=== PATIENT | female | born 1945 | race Hispanic/Latino ===

== ENCOUNTER → 2020-11-29 | Outpatient (CLI) | payer OTHER | END | disposition home or self-care (01) | LOC: RAH 12:57 | PROVIDERS: ATTEND Otolaryngology Plastic Surgery within the Head & Neck | DX: R22.1 Localized swelling, mass and lump, neck (principal); R22.0 Localized swelling, mass and lump, head | CPT/HCPCS: 76536 ==

== ENCOUNTER → 2022-01-28 | Outpatient (CLI) | payer OTHER | END | disposition home or self-care (01) | LOC: RAH 09:11 | PROVIDERS: ATTEND Family Medicine | DX: N17.9 Acute kidney failure, unspecified (principal) | CPT/HCPCS: 93975 ==

== ENCOUNTER 2022-04-25 05:39 | Observation (INO) | payer OTHER ==
[2022-04-23 11:37] LABS: BASOPHILS % (AUTO) 0.7 % (0.0-5.0); EOSINOPHILS % (AUTO) 2.6 % (0.0-8.0); HEMATOCRIT 28.5 % (36-48); LYMPHOCYTES % (AUTO) 26.9 % (21.0-51.0); MEAN CORPUSCULAR HEMOGLOBIN 24.5 pg (27.0-33.0); MEAN CORPUSCULAR HGB CONC 31.2 g/dL (32.0-36.0); MEAN CORPUSCULAR VOLUME 78.5 fL (79-99); MONOCYTES % (AUTO) 8.5 % (3.0-13.0); NEUTROPHILS % (AUTO) 61.1 % (40.0-77.0); PLATELET COUNT (AUTO) 366 K/uL (130-400); RED BLOOD CELL COUNT(AUTO) 3.63 MIL/uL (4.00-5.50); RED CELL DISTRIBUTION WIDTH 13.9 % (11.0-15.5); WHITE BLOOD COUNT (AUTO) 8.7 K/uL (4.8-10.8)
[2022-04-23 11:55] LABS: INR 0.93 (0.85-1.15); PROTHROMBIN TIME 9.9 SEC (9.6-11.6)
[2022-04-23 11:56] LABS: PARTIAL THROMBOPLASTIN TIME 26.2 SEC (26.3-35.5)
[2022-04-23 12:09] LABS: B-TYPE NATRIURETIC PEPTIDE 154 pg/mL (0-100)
[2022-04-23 12:14] LABS: APPEARANCE,URINE CLEAR (CLEAR); BILIRUBIN,URINE NEGATIVE (NEGATIVE); COLOR,URINE YELLOW (YELLOW); GLUCOSE, URINE (UA) >=1000 mg/dL (NEGATIVE); KETONES,URINE NEGATIVE (NEGATIVE); LEUKOCYTE ESTERASE ,URINE MODERATE (NEGATIVE); NITRATE,URINE NEGATIVE (NEGATIVE); OCCULT BLOOD,URINE TRACE-INTACT (NEGATIVE); PROTEIN,URINE NEGATIVE (NEGATIVE); UROBILINOGEN,URINE 0.2 mg/dL (0.2-1.0)
[2022-04-23 12:21] LABS: BACTERIA,URINE Few /HPF (None Seen); RBC,URINE 0-1 /HPF (0-1); SQUAMOUS EPITHELIAL CELL,UR Few /HPF (0-2); WBC,URINE 0-1 /HPF (0-1)
[2022-04-23 13:12] LABS: CREATININE 1.3 mg/dL (0.5-1.5); POTASSIUM 4.9 mmol/L (3.5-5.1)
[2022-04-24 09:15] VITALS: BP 155/78
[~2022-04-25] VITALS: Ht 154.9 cm; Wt 59.0 kg
[2022-04-25] VITALS (15 sets, daily range): BP systolic 111–135; BP diastolic 45–66
[~2022-04-25 05:39] MED LIST: AMLO-258 PO; FURO20TA4 PO; GLIM2TAB30 PO; INSU100V37 SQ; LEVO50CA4 PO; PANT40TA54 PO; SIMV-43 PO
[2022-04-25] MEDS ORDERED: 0.9%NACL 1000ML 1,000 ML IV ONE (06:22)
[2022-04-25 07:10] LABS: HEMATOCRIT 27.3 % (36-48)
[2022-04-25] MEDS ORDERED: IOHEXOL 350 MG/ML 100ML INFUS..BTL IV ONE ×2 (07:13→07:26)
[2022-04-25] MEDS ORDERED: LIDOCAINE HCL 1% 20 ML VIAL ONE ×2 (07:13→07:16)
[2022-04-25] MEDS ORDERED: HEPARIN 10,000 UNIT/10ML (1,000 UNIT/ML) VIAL ONE (07:25)
[2022-04-25] MEDS ORDERED: IOHEXOL-350 50ML VIAL IV ONE (07:26)
[2022-04-25] MEDS ORDERED: FENTANYL CITRATE PF 50 MCG/1 ML 2ML VIAL ONE (07:26)
[2022-04-25] MEDS ORDERED: MIDAZOLAM HCL 1 MG/ML 2ML VIAL ONE (07:26)
[2022-04-25] MEDS ORDERED: NITROGLYCERIN 50MG VIAL ONE (07:45)
[2022-04-25] MEDS ORDERED: BIVALIRUDIN 250 MG/VIAL IV ONE (08:08)
[2022-04-25] MEDS ORDERED: CLOPIDOGREL 300MG TAB ONE (08:30)
[2022-04-25] MEDS ORDERED: ASPIRIN 325MG EC TAB PO ONE (08:30)
[2022-04-25] MEDS ORDERED: MORPHINE 4 MG SYG ONE ×2 (08:45→09:00)
[2022-04-25] MEDS ORDERED: NITROGLYCERIN 0.4 MG SL TAB SL PRN (09:00)
[2022-04-25] MEDS: CLOPIDOGREL 75MG TAB PO SCH (09:00)
[2022-04-25] MEDS ORDERED: DEXTROSE 50%-WATER 50 ML DISP.SYRIN IV PRN ×2 (09:00→14:00)
[2022-04-25] MEDS ORDERED: GLUCAGON 1MG KIT 1 MG ML IM PRN ×2 (09:00→14:00)
[2022-04-25] MEDS ORDERED: 0.9%NACL 1000ML 1,000 ML IV SCH (09:00)
[2022-04-25] MEDS: ASPIRIN 81MG CHEW TAB PO SCH (09:00)
[2022-04-25] MEDS ORDERED: ONDANSETRON 4MG INJ ONE (10:33)
[2022-04-25] MEDS ORDERED: PANTOPRAZOLE 40 MG/VIAL IVP SCH (11:00)
[2022-04-25] MEDS ORDERED: ONDANSETRON 4MG INJ IVP SCH (11:00)
[2022-04-25] MEDS ORDERED: INSULIN HUMULIN R 100 UNIT/ML 3ML SQ SCH (11:30)
[2022-04-25] MEDS ORDERED: MAGNESIUM 2GM PREMIX 50ML 50 ML IV PRN (14:00)
[2022-04-25] MEDS ORDERED: POTASSIUM CHLORIDE 10% ELIXIR 20 MEQ/15 ML UDCUP PO PRN (14:00)
[2022-04-25] MEDS ORDERED: KCL 20 MEQ ERTAB PO PRN (14:00)
[2022-04-25] MEDS ORDERED: LIDOCAINE HCL-MPF 1% 2ML VIAL IV PRN (14:00)
[2022-04-25] MEDS ORDERED: POTASSIUM CHLORIDE 20MEQ/100ML 100 ML IV PRN (14:00)
[2022-04-25] MEDS ORDERED: CEFTRIAXONE 1G VIAL IVP SCH (14:30)
[2022-04-25] MEDS ORDERED: ALBUTEROL 0.083% 2.5 MG/3 ML INH IH PRN (14:30)
[2022-04-25] MEDS: INSULIN HUMULIN R 100 UNIT/ML 3ML SQ SCH ×2 (18:35→20:28)
[2022-04-25] MEDS ORDERED: PANTOPRAZOLE 40 MG TAB DR PO SCH (21:00)
[2022-04-25] MEDS ORDERED: FUROSEMIDE 20 MG TABLET PO ONE (21:00)
[2022-04-25] MEDS ORDERED: SIMVASTATIN 20 MG TABLET PO SCH (21:00)
[2022-04-26 04:00] VITALS: BP 117/54
[2022-04-26 05:28] LABS: HEMATOCRIT 25.6 % (36-48); MEAN CORPUSCULAR HEMOGLOBIN 24.7 pg (27.0-33.0); MEAN CORPUSCULAR HGB CONC 31.6 g/dL (32.0-36.0); RED BLOOD CELL COUNT(AUTO) 3.28 MIL/uL (4.00-5.50); RED CELL DISTRIBUTION WIDTH 14.3 % (11.0-15.5); WHITE BLOOD COUNT (AUTO) 9.6 K/uL (4.8-10.8)
[2022-04-26 05:53] LABS: CREATININE 1.1 mg/dL (0.5-1.5); POTASSIUM 4.1 mmol/L (3.5-5.1)
[2022-04-26] MEDS: INSULIN HUMULIN R 100 UNIT/ML 3ML SQ SCH ×2 (06:19→12:18)
[2022-04-26] MEDS ORDERED: LEVOTHYROXINE 50 MCG TABLET PO SCH (06:30)
[2022-04-26 08:15] VITALS: BP 137/58
[2022-04-26] MEDS: ASPIRIN 81MG CHEW TAB PO SCH (08:17)
[2022-04-26] MEDS: CLOPIDOGREL 75MG TAB PO SCH (08:18)
[2022-04-26] MEDS ORDERED: NON-FORMULARY MEDICATION 1 EACH (Levothyroxine Sodium (Levothyroxine) 50 MCG) PO SCH (09:00)
[2022-04-26] MEDS ORDERED: NON-FORMULARY MEDICATION 1 EACH (Amlodipine Besylate 10 MG) PO SCH (09:00)
[2022-04-26] MEDS ORDERED: AMLODIPINE 5 MG TAB PO SCH (09:00)
[2022-04-26] MEDS ORDERED: FUROSEMIDE 20 MG TABLET PO SCH (09:00)
[2022-04-26] MEDS ORDERED: POLY17PO4 PO (11:17)
[2022-04-26] MEDS ORDERED: GLIMEPIRIDE 2 MG TABLET PO SCH (11:30)
[2022-04-26] MEDS ORDERED: POLYETHYLENE GLYCOL 3350 17 GM POWD.PACK PO SCH (11:30)
[2022-04-26 12:18] VITALS: BP 116/49
[2022-04-26] MEDS ORDERED: CLOP75TA14 PO (17:33)
[2022-04-26] MEDS ORDERED: ASPI-1005 PO (17:33)
[2022-04-27] MEDS ORDERED: GLIMEPIRIDE 2 MG TABLET PO SCH (09:00)
[2022-04-27] MEDS ORDERED: POLYETHYLENE GLYCOL 3350 17 GM POWD.PACK PO SCH (09:00)
[2022-04-27] MEDS ORDERED: INSULIN DEGLUDEC 30 UNIT SQ SCH (09:00)
== END 2022-04-26 12:20 | disposition home or self-care (01) ==
LOC: DAH 05:39 → DAHIP 05:40 → 2DH 15:34
PROVIDERS: ADMIT Internal Medicine; ATTEND Internal Medicine
DX: I70.1 Atherosclerosis of renal artery (principal); I35.0 Nonrheumatic aortic (valve) stenosis; I25.110 Atherosclerotic heart disease of native coronary artery with unstable angina pectoris; I13.0 Hypertensive heart and chronic kidney disease with heart failure and stage 1 through stage 4 chronic kidney disease, or unspecified chronic kidney disease; E11.22 Type 2 diabetes mellitus with diabetic chronic kidney disease; I50.32 Chronic diastolic (congestive) heart failure; N18.9 Chronic kidney disease, unspecified; D63.8 Anemia in other chronic diseases classified elsewhere; E03.9 Hypothyroidism, unspecified; E78.5 Hyperlipidemia, unspecified; J84.10 Pulmonary fibrosis, unspecified; Z90.710 Acquired absence of both cervix and uterus; Z79.899 Other long term (current) drug therapy
CPT/HCPCS: 80048 ×2; 83880 ×2; 85025; 85610; 85730; 87088; 81001; 36415 ×3; 71045 ×2; 93005 ×2; 93460; 36252; 96374; 96375; 82550; 83874; 84484; 85014; 85018; 82948 ×6; 80061; 85027; C1769; C1887; C1894 ×3; C1760; C1874; C1725; Q9965; G0378 ×27; J3010; J7030; J0696; J2250; J2405 ×2; J2270 ×2; C9113; J1644; J3490; J0583; Q9967 ×2; J1815 ×3; A4215; A4223 ×3; A4222; A4221; A4663; A4216; A4606; C9600; 99156; 99157

== ENCOUNTER → 2022-05-29 | Outpatient (CLI) | payer OTHER ==
[~2022-05-29] MED LIST changes: +ASPI-1005 PO; +CLOP75TA14 PO; +POLY17PO4 PO
== END | disposition home or self-care (01) ==
LOC: RAH 10:39
PROVIDERS: ATTEND Family Medicine
DX: M79.604 Pain in right leg (principal); R60.0 Localized edema
CPT/HCPCS: 93971

== ENCOUNTER → 2023-03-20 | Outpatient (CLI) | payer OTHER ==
[~2023-03-20] MED LIST changes: +CLOP-31 PO; -CLOP75TA14 PO
== END | disposition home or self-care (01) ==
LOC: SHCH 09:48
PROVIDERS: ATTEND Internal Medicine Cardiovascular Disease
DX: I11.9 Hypertensive heart disease without heart failure (principal); I35.0 Nonrheumatic aortic (valve) stenosis; E11.9 Type 2 diabetes mellitus without complications; E78.5 Hyperlipidemia, unspecified
CPT/HCPCS: 93306

== ENCOUNTER → 2023-11-11 | Outpatient (CLI) | payer OTHER | END | disposition home or self-care (01) | LOC: SHCH 13:50 | PROVIDERS: ATTEND Internal Medicine Cardiovascular Disease | DX: I87.2 Venous insufficiency (chronic) (peripheral) (principal); I73.9 Peripheral vascular disease, unspecified; I87.1 Compression of vein | CPT/HCPCS: 93925; 93970 ==

== ENCOUNTER → 2024-03-27 | Outpatient (CLI) | payer OTHER | END | disposition home or self-care (01) | LOC: SHCH 12:31 | PROVIDERS: ATTEND Internal Medicine Cardiovascular Disease | DX: I35.0 Nonrheumatic aortic (valve) stenosis (principal) | CPT/HCPCS: 93306 ==

== ENCOUNTER → 2024-05-28 | Outpatient (CLI) | payer OTHER ==
[2024-05-28] MEDS: REGADENOSON 0.4 MG/5 ML PF SYG IVP ONE (14:08)
== END | disposition home or self-care (01) ==
LOC: SHCH 08:27
PROVIDERS: ATTEND Internal Medicine Cardiovascular Disease
DX: I21.4 Non-ST elevation (NSTEMI) myocardial infarction (principal); I25.5 Ischemic cardiomyopathy
CPT/HCPCS: 78452; 93017; J2785; A9500 ×2

== ENCOUNTER → 2024-06-24 | Outpatient (CLI) | payer OTHER | END | disposition home or self-care (01) | LOC: LAB 09:34 | PROVIDERS: ATTEND Internal Medicine Cardiovascular Disease | DX: I42.9 Cardiomyopathy, unspecified (principal) | CPT/HCPCS: 36415; 83880 ==

== ENCOUNTER → 2024-07-01 | Outpatient (CLI) | payer OTHER ==
--- NOTE | 2024-07-01 11:51 | HMCIMG ---
MR ABDOMEN WO CON REASON: N28.89 Other specified disorders of kidney and ureter COMPARISON: None TECHNIQUE: Routine imaging protocol was performed in the coronal and axial plane with T1, proton density, T2 and gradient recalled sequences. Exam was performed without IV contrast. FINDINGS: There is a well-circumscribed 1 cm nodule extending posteriorly from the upper pole of the right kidney. This could represent a cyst. A solid nodule is also possible, this distinction is difficult without IV contrast. Ultrasound is recommended for further evaluation. There are several subcentimeter cysts in each kidney. There are no other focal nodules. There is no hydronephrosis. There are no perinephric fluid collections. There are no focal liver lesions. Spleen and pancreas appear unremarkable. Gallbladder is absent. IMPRESSION: 1. Well-circumscribed nodule extending posteriorly from the upper pole of the right kidney, signal characteristics are not typical of a simple cyst, ultrasound is recommended for further evaluation. 2. Absent gallbladder. 3. Otherwise unremarkable exam.
== END | disposition home or self-care (01) ==
LOC: RAH 08:32
PROVIDERS: ATTEND Family Medicine
DX: N28.1 Cyst of kidney, acquired (principal); N28.89 Other specified disorders of kidney and ureter; Z90.49 Acquired absence of other specified parts of digestive tract
CPT/HCPCS: 74181